=== PATIENT | female | born 1965 | race Caucasian/White ===

== ENCOUNTER → 2016-08-19 | Outpatient (CLI) | payer OTHER ==
--- NOTE | 2016-08-19 12:32 | DIAGNOSTIC IMAGING REPORT ---
TWO VIEW CHEST CLINICAL HISTORY: Dyspnea. Smoking history. FINDINGS: PA and lateral chest radiographs are obtained. No prior studies are available for comparison at the time of dictation. The cardiomediastinal silhouette is unremarkable. The lungs are hyperinflated and hyperlucent with flattening of the diaphragm and increased retrosternal clear space consistent with obstructive physiology. Nonspecific interstitial thickening is noted. There is no airspace consolidation, pleural effusion, or pneumothorax. The skeletal structures are osteopenic. Degenerative change and mild S-shaped scoliosis are noted in the thoracic spine. IMPRESSION: 1. Emphysema with no acute cardiopulmonary abnormality. 2. No concerning pulmonary lesion is seen by x-ray. Note that x-rays is insensitive in screening for lung cancer. If there is clinical concern for pulmonary neoplasm then a chest CT should be considered. Electronically signed by: Renny Diallo M.D. 08/19/2016 12:31 PM Dictated Date/Time: 08/19/2016 12:29 PM
[2016-08-19 13:49] LABS: BASO % 0.3 %; BASO ABS # 0.04 K/uL (0-0.2); COMPLETE YES; EOS % 0.7 %; HEMATOCRIT 41.8 % (37-47); IG% 0.2 %; LYMPH ABS # 2.81 K/uL (1.2-3.4); MEAN CELL VOLUME 94.4 fL (80-100); MEAN CORPUSCULAR HGB CONC 34.9 g/dl (32-36); MEAN PLATELET VOLUME 9.8 fL (7.4-10.4); MONO % 5.3 %; NEUT % 73.5 %; PLATELET COUNT 342 K/uL (130-400); RED BLOOD COUNT 4.43 M/uL (4.2-5.4); WHITE BLOOD COUNT 14.07 K/uL (4.8-10.8)
[2016-08-19 14:24] LABS: URINE APPEARANCE TURBID (CLEAR); URINE BILIRUBIN NEG (NEG); URINE COLOR DK YELLOW; URINE NITRITE NEG (NEG); URINE PH 6.5 (4.5-7.5); URINE SPECIFIC GRAVITY 1.025 (1.000-1.030); UROBILINOGEN NEG (NEG)
[2016-08-19 14:25] LABS: ALT/SGPT 24 U/L (12-78); AST/SGOT 21 U/L (15-37); BLOOD UREA NITROGEN 18 mg/dl (7-18); BUN/CREATININE RATIO 24.9 (10-20); CALCIUM 8.8 mg/dl (8.5-10.1); CARBON DIOXIDE 27 mmol/L (21-32); CHLORIDE 104 mmol/L (98-107); CREATININE 0.71 mg/dl (0.60-1.20); GLUCOSE 90 mg/dl (70-99); POTASSIUM 4.2 mmol/L (3.5-5.1); SODIUM 138 mmol/L (136-145)
[2016-08-19 14:33] LABS: ALB/GLOB RATIO 1.3 (0.9-2); ALKALINE PHOSPHATASE 91 U/L (45-117); CHOLESTEROL 281 mg/dl (0-200); CHOLESTEROL/HDL RATIO 4.6; HDL CHOLESTEROL 61 mg/dl; LDL CHOLESTEROL CALCULATED 184 mg/dl; TRIGLYCERIDES 178 mg/dl (0-150); VERY LOW DENSITY LIPOPROT CALC 36 mg/dl
[2016-08-19 14:35] LABS: MANUAL MICROSCOPIC REQUIRED? NO; REVIEW REQ? NO
--- NOTE | 2016-08-26 08:24 | CODING QUERY MEDICAL NECESSITY ---
SUPPORTING DIAGNOSIS NEEDED A supporting diagnosis is required for the test/procedure performed on this patient in order for us to be reimbursed by the patient's insurance. Please provide a supporting diagnosis for the following test/procedure listed below next to the test name along with your signature. *If there is no additional diagnosis for this patient that would support the following test/procedure please document that below next to the test/procedure. Test(s)/Procedure(s) that require a supporting diagnosis: * VITAMIN D 25-HYDROXY DIAGNOSIS: * VITAMIN B-12 LEVEL DIAGNOSIS: * DOS: 08/19/16 Provider Signature: Date: Thank you Tatyana Garcia Health Information Management Once completed, please kindly fax back to [phone] For questions please call [phone]
== END | disposition home or self-care (01) ==
LOC: MERGE 11:45 → C.RADBC 11:45
PROVIDERS: ATTEND Internal Medicine
DX: F17.200 Nicotine dependence, unspecified, uncomplicated (principal); E03.9 Hypothyroidism, unspecified; Z00.00 Encounter for general adult medical examination without abnormal findings; J43.9 Emphysema, unspecified

== ENCOUNTER → 2016-08-25 | Outpatient (CLI) | payer OTHER ==
[~2016-08-25] MED LIST: GADAVIST IV PRN
--- NOTE | 2016-08-25 15:40 | DIAGNOSTIC IMAGING REPORT ---
ABDOMEN AND PELVIS CT WITH ORAL CONTRAST CT DOSE: 418.52 mGycm HISTORY: Endometrial cancer. TECHNIQUE: Multiaxial CT images of the abdomen and pelvis were performed following the use of oral contrast. COMPARISON STUDY: None. FINDINGS: Small fat-containing right-sided Bochdalek hernia. The lung bases are clear. A 2 cm hemangioma at the L4 vertebral body. No suspicious lytic or blastic osseous lesions. There is a 5 mm nodule within the left upper quadrant on image 113 of 436. This favors an accessory spleen. No additional omental abnormalities identified. No pelvic masses. The bladder is unremarkable. The uterus is surgically absent. No pelvic free fluid. No abdominal or pelvic lymphadenopathy. There are few gallstones. The unenhanced liver, spleen, kidneys, adrenal glands, and pancreas are unremarkable. No evidence for bowel obstruction. Normal appendix. Multiple colonic diverticula. There is a single thickened diverticulum along the undersurface of the hepatic flexure with mild adjacent fat stranding. This is best seen on image 172. This is consistent with acute diverticulitis. No perforation or abscess identified. IMPRESSION: 1. Mild acute diverticulitis at the hepatic flexure of the colon. No perforation or abscess. 2. Hysterectomy. No evidence for metastatic disease within the abdomen or pelvis. 3. Cholelithiasis. Electronically signed by: Miky Smart M.D. 08/25/2016 3:38 PM Dictated Date/Time: 08/25/2016 3:28 PM
--- NOTE | 2016-08-25 17:10 | DIAGNOSTIC IMAGING REPORT ---
MRI brain/pituitary BRAIN COMBO FOR PITUITARY CLINICAL HISTORY: Pituitary microadenoma TECHNIQUE: Multiaxial MRI acquisition pre and post gadolinium enhancement COMPARISON STUDY: None FINDINGS: Diffusion-weighted images are negative for an acute ischemic event. Signal characteristics of the cerebellar as well as cerebral hemispheres are unremarkable. Signal characteristics of the pituitary, optic chiasm, and pituitary stock are unremarkable. There are no negatively enhancing lesions. The remainder the brain shows unremarkable signal characteristics throughout. [ IMPRESSION: Negative study of the brain and pituitary Electronically signed by: Isaias George M.D. 08/25/2016 5:09 PM Dictated Date/Time: 08/25/2016 5:06 PM
== END | disposition home or self-care (01) ==
LOC: MERGE 13:24 → C.CTS 13:24
PROVIDERS: ATTEND Internal Medicine
DX: D35.2 Benign neoplasm of pituitary gland (principal); Z85.42 Personal history of malignant neoplasm of other parts of uterus; K57.32 Diverticulitis of large intestine without perforation or abscess without bleeding; K80.20 Calculus of gallbladder without cholecystitis without obstruction; R31.29 Other microscopic hematuria

== ENCOUNTER → 2016-08-25 | Outpatient (CLI) | payer OTHER | END | disposition home or self-care (01) | LOC: MERGE 09:54 → C.LABBC 09:54 | PROVIDERS: ATTEND Internal Medicine | DX: R31.29 Other microscopic hematuria (principal) ==

== ENCOUNTER → 2016-09-04 | Outpatient (CLI) | payer OTHER | END | disposition home or self-care (01) | LOC: C.PATHSPEC 16:59 → MERGE 16:59 | PROVIDERS: ATTEND Nurse Practitioner Family | DX: R31.29 Other microscopic hematuria (principal) ==

== ENCOUNTER → 2016-09-05 | Outpatient (CLI) | payer OTHER ==
[~2016-09-05] MED LIST changes: -GADAVIST IV PRN; +OPTIRAY 320 IV PRN
--- NOTE | 2016-09-05 13:04 | DIAGNOSTIC IMAGING REPORT ---
CT UROGRAM CLINICAL HISTORY: Microscopic hematuria. COMPARISON STUDY: Abdominal CT dated 08/25/2016. TECHNIQUE: Before and following the IV administration of 94 cc of Optiray 320, CT urogram of the abdomen and pelvis is performed from the lung bases to the proximal femora. Images are reviewed in the axial, sagittal, and coronal planes. IV contrast was administered without complication. CT DOSE: 1106.70 mGycm FINDINGS: Lung bases: The heart is normal in size and without pericardial effusion. Small fat-containing Bochdalek hernias are present at both lung bases. The lung bases are otherwise clear. Liver: The contrast-enhanced liver is normal in size, contour, and attenuation. There is no intrahepatic biliary ductal dilatation. The hepatic veins and portal veins are patent. Gallbladder: There are small calcified gallstones. Prominent folds are incidentally noted in the gallbladder. Spleen: Normal in size and attenuation. Pancreas: Unremarkable. Adrenal glands: Unremarkable. Kidneys and ureters: The contrast enhanced kidneys are normal in size and without hydronephrosis. There are no renal calculi identified on the unenhanced images. The kidneys enhance and excrete symmetrically. There is no enhancing renal cortical mass lesion identified. Scattered subcentimeter cortical hypodensities likely represent cysts but are too small for definitive characterization. There is no evidence of urothelial lesion within the renal pelvis bilaterally or along the course of either ureter. The distal left ureter is not well opacified by excreted contrast. Abdominal vasculature: The abdominal aorta is normal in course and caliber noting moderate atherosclerotic calcification. Bowel: The small bowel and colon are normal in course and caliber. There is mild to moderate colonic diverticulosis without CT evidence of acute diverticulitis. The appendix is well-visualized and normal. Peritoneum: There is no intraperitoneal free air or abdominal ascites. Lymphadenopathy: None. Pelvic viscera: The bladder is normal as visualized. The uterus is surgically absent. No adnexal lesion is seen. Numerous phleboliths are seen in the pelvis. Skeletal structures: No lytic or blastic bony lesions are seen. There is mild lumbosacral spondylosis. A large meningioma is noted in the body of L4. IMPRESSION: 1. There are no acute infectious or inflammatory findings in the abdomen or pelvis. 2. Unremarkable CT urogram. 3. Mild to moderate colonic diverticulosis without CT evidence of acute diverticulitis. 4. Cholelithiasis. 5. Additional changes as above. Electronically signed by: Renny Diallo M.D. 09/05/2016 1:03 PM Dictated Date/Time: 09/05/2016 12:53 PM
== END | disposition home or self-care (01) ==
LOC: C.CTS 12:19
PROVIDERS: ATTEND Nurse Practitioner Family
DX: R31.29 Other microscopic hematuria (principal); K57.90 Diverticulosis of intestine, part unspecified, without perforation or abscess without bleeding; K80.20 Calculus of gallbladder without cholecystitis without obstruction

== ENCOUNTER → 2016-09-09 | Outpatient (CLI) | payer OTHER | END | disposition home or self-care (01) | LOC: C.LABSPEC 17:06 | PROVIDERS: ATTEND Urology | DX: R31.29 Other microscopic hematuria (principal) ==

== ENCOUNTER → 2016-10-06 | Outpatient (CLI) | payer OTHER ==
[~2016-10-06] MED LIST changes: +GADAVIST IV PRN; -OPTIRAY 320 IV PRN
--- NOTE | 2016-10-06 09:15 | DIAGNOSTIC IMAGING REPORT ---
LUMBAR SPINE MRI WITH AND WITHOUT CONTRAST HISTORY: Back pain D18.09 Hemangioma of vertebral [id number] TECHNIQUE: Multiplanar multisequence MRI of the lumbar spine was performed both before and after the intravenous administration of contrast. COMPARISON: CT abdomen and pelvis dated 09/05/2016 FINDINGS: For the purpose of the report the L5-S1 disc space will be located on axial image 27 of 30. Findings of a benign bone marrow hemangioma of L4. No significant bone marrow replacing process. Mild disc desiccation L3-L4 and to a lesser extent L4-L5. L1-L2: No significant central canal or neural foraminal narrowing. L2-L3: No significant central canal or neural foraminal narrowing. L3-L4: Mild broad-based disc bulge. Minimal impact anterior thecal sac. Neuroforamina slightly compromised bilaterally L4-L5: No significant central canal or neural foraminal narrowing. L5-S1: No significant central canal or neural foraminal narrowing. IMPRESSION: 1. Benign bone marrow hemangioma of L4 2. Mild broad-based disc bulge L3-L4 with minimal impact anterior thecal sac and minimal to mild narrowing of the neuroforamina bilaterally. 3. No evidence for major disc herniation or spinal stenosis Electronically signed by: Isaias George M.D. 10/06/2016 9:14 AM Dictated Date/Time: 10/06/2016 9:10 AM
== END | disposition home or self-care (01) ==
LOC: C.MRIBC 06:34
PROVIDERS: ATTEND Internal Medicine
DX: D18.09 Hemangioma of other sites (principal)

== ENCOUNTER → 2016-10-16 | Outpatient (CLI) | payer OTHER | END | disposition home or self-care (01) | LOC: C.PAPS 15:05 | PROVIDERS: ATTEND Obstetrics & Gynecology | DX: Z12.4 Encounter for screening for malignant neoplasm of cervix (principal) ==